=== PATIENT | male | born 1990 | race African-American/Black ===

== ENCOUNTER 2018-06-25 11:11 | Emergency (ER) | payer OTHER ==
[~2018-06-25] VITALS: Ht 175.3 cm; Wt 68.2 kg
[2018-06-25 11:11] VITALS: BP 136/78
[~2018-06-25 11:11] MED LIST: PAXI20TA OR
[2018-06-25] MEDS ORDERED: IBUP80TA PO (12:12)
[2018-06-25] MEDS ORDERED: PRED20TA PO (12:12)
[2018-06-25] MEDS ORDERED: ZITHTAB PO (12:12)
[2018-06-25] MEDS ORDERED: IBUPROFEN 800 MG TAB PO ONE (12:15)
[2018-06-25] MEDS ORDERED: AZITHROMYCIN 250 MG TAB PO ONE (12:15)
== END 2018-06-25 12:19 | disposition home or self-care (01) ==
LOC: M ED 11:11
DX: J03.90 Acute tonsillitis, unspecified (principal); H66.93 Otitis media, unspecified, bilateral; R00.0 Tachycardia, unspecified; K92.9 Disease of digestive system, unspecified; Z87.442 Personal history of urinary calculi; M62.9 Disorder of muscle, unspecified; F32.9 Major depressive disorder, single episode, unspecified; F41.9 Anxiety disorder, unspecified; Z88.0 Allergy status to penicillin; F17.200 Nicotine dependence, unspecified, uncomplicated; Z79.899 Other long term (current) drug therapy

== ENCOUNTER → 2019-04-08 | Outpatient (REF) | payer OTHER ==
[~2019-04-08] MED LIST changes: +IBUP80TA PO; +PRED20TA PO; +ZITHTAB PO
[2019-04-08 15:34] LABS: INFLUENZA A AMPLIFICATION NEGATIVE (NEGATIVE); INFLUENZA B AMPLIFICATION NEGATIVE (NEGATIVE)
== END ==
LOC: M LAB REF 14:41
PROVIDERS: ATTEND Physician Assistant Medical
DX: R50.9 Fever, unspecified (principal)

== ENCOUNTER → 2020-03-18 | Outpatient (CLI) | payer SELFPAY | LOC: M LABSMTC 13:09 | PROVIDERS: ATTEND Pediatrics | DX: Z20.822 Contact with and (suspected) exposure to COVID-19 (principal) ==

== ENCOUNTER → 2020-09-05 | Outpatient (CLI) | payer OTHER | LOC: M LABSMTC 08:04 | PROVIDERS: ATTEND Pediatrics | DX: Z20.822 Contact with and (suspected) exposure to COVID-19 (principal) ==

== ENCOUNTER → 2020-09-05 | Outpatient (CLI) | payer SELFPAY | LOC: M LABSMTC 08:15 | PROVIDERS: ATTEND Pediatrics | DX: Z20.822 Contact with and (suspected) exposure to COVID-19 (principal) ==